=== PATIENT | female | born 1985 | race Asian ===

== ENCOUNTER 2018-12-08 09:53 | Outpatient (CLI) | payer OTHER | END 2018-12-08 12:01 | disposition home or self-care (01) | LOC: OBT 09:53 → L-D 09:56 → OBT 12:01 | DX: O24.419 Gestational diabetes mellitus in pregnancy, unspecified control (principal); Z3A.36 36 weeks gestation of pregnancy | CPT/HCPCS: 76818; 82962 ==

== ENCOUNTER 2018-12-14 09:25 | Outpatient (CLI) | payer OTHER | END 2018-12-14 13:30 | disposition home or self-care (01) | LOC: OBT 09:25 → L-D 09:26 → OBT 13:30 | DX: O24.419 Gestational diabetes mellitus in pregnancy, unspecified control (principal); Z3A.37 37 weeks gestation of pregnancy | CPT/HCPCS: 76816; 76818; 82962 ==

== ENCOUNTER 2018-12-23 00:10 | Inpatient (IN) | payer OTHER ==
[2018-12-23] MEDS ORDERED: METHYLERGONOVINE 0.2 MG INJ IM ×2 (01:30→16:00)
[2018-12-23] MEDS ORDERED: CARBOPROST 250 MCG INJ IM ×2 (01:30→16:00)
[2018-12-23] MEDS ORDERED: MISOPROSTOL 200 MCG TAB PR ×2 (01:30→16:00)
[2018-12-23] MEDS ORDERED: OXYTOCIN 30 UNITS/LR 500 ML IV ×2 (01:30→16:00)
[2018-12-23] MEDS: TERBUTALINE 1 MG/ML INJ SC (01:39)
[2018-12-23] MEDS: LACTATED RINGER'S 1,000 ML IV ×3 (01:39→10:39)
[2018-12-23 02:08] LABS: ADD MAN DIFF? NO
[2018-12-23 02:10] LABS: BASOPHIL # 0.1 10^3/ul (0.0-0.1); BASOPHILS % 0.6 % (0.0-2.0); EOSINOPHILS # 0.1 10^3/ul (0.0-0.5); EOSINOPHILS % 0.6 % (0.0-7.0); HEMATOCRIT 40.2 % (37.0-47.0); HEMOGLOBIN 13.2 g/dl (12.0-16.0); LYMPHOCYTES # 2.4 10^3/ul (0.8-2.9); LYMPHOCYTES % 22.4 % (15.0-51.0); MEAN CORPUSCULAR HEMOGLOBIN 29.2 pg (29.0-33.0); MEAN CORPUSCULAR HGB CONC 32.8 g/dl (32.0-37.0); MEAN CORPUSCULAR VOLUME 88.9 fl (82.0-101.0); MEAN PLATELET VOLUME 11.1 fl (7.4-10.4); MONOCYTE # 0.6 10^3/ul (0.3-0.9); NEUTROPHIL # 7.4 10^3/ul (1.6-7.5); PLATELET COUNT 196 10^3/UL (140-415); RED BLOOD COUNT 4.52 10^6/ul (4.20-5.40); RED CELL DISTRIBUTION WIDTH 13.2 % (11.5-14.5)
[2018-12-23 02:10] LABS: WHITE BLOOD COUNT 10.5 10^3/ul (4.8-10.8)
[2018-12-23 02:26] LABS: GLUCOSE 83 mg/dl (70-220)
[2018-12-23 02:30] LABS: INR 0.86; PARTIAL THROMBOPLASTIN TIME 25.1 Sec (23.0-35.0); PROTIME 11.8 Sec (11.9-14.9); PT RATIO 0.9
[2018-12-23 02:58] LABS: HEPATITIS B SURFACE ANTIGEN NEGATIVE (NEGATIVE)
[2018-12-23] MEDS: CITRIC ACID/NA CITRATE 30 ML CUP PO (07:25)
[2018-12-23] MEDS: ONDANSETRON 4 MG INJ IV (07:25)
[2018-12-23] MEDS ORDERED: PHENYLephrine (100 MCG/ML) 10ML SYG (07:42)
[2018-12-23] MEDS ORDERED: morphine SULFATE/PF (10 MG/10 ML) INJ (07:43)
[2018-12-23] MEDS ORDERED: OXYTOCIN 10 UNIT INJ (07:43)
[2018-12-23] MEDS: AZITHROMYCIN 500MG/NS (PMX) 250 ML IVPB (08:00)
[2018-12-23] MEDS ORDERED: METOCLOPRAMIDE 10 MG INJ (08:09)
[2018-12-23] MEDS ORDERED: DEXAMETHASONE 4 MG/ML 1 ML INJ (08:09)
[2018-12-23] MEDS ORDERED: KETOROLAC 30 MG INJ (08:09)
[2018-12-23] MEDS ORDERED: EPHEDrine 25 MG/5 ML SYG (08:22)
[2018-12-23] MEDS ORDERED: HYDROmorphONE 1 MG/5 ML IV SYRINGE IV ×2 (08:30)
[2018-12-23] MEDS ORDERED: OXYCODONE/ACETAMINOPHEN (5/325) TAB PO (08:30)
[2018-12-23] MEDS ORDERED: ACETAMINOPHEN 500 MG TAB PO (08:30)
[2018-12-23] MEDS ORDERED: MEPERIDINE 25 MG INJ IV (08:30)
[2018-12-23] MEDS ORDERED: FENTAnyl 50 MCG/ML VIAL IV ×2 (08:30)
[2018-12-23] MEDS ORDERED: NALBUPHINE HCL (10 MG/1 ML) INJ IV (08:30)
[2018-12-23] MEDS ORDERED: NALOXONE (0.4 MG/ML) INJ IV (08:30)
[2018-12-23] MEDS ORDERED: EPHEDrine 25 MG/5 ML SYG IV (08:30)
[2018-12-23] MEDS ORDERED: morphine 2 MG INJ IV ×2 (08:30)
[2018-12-23] MEDS ORDERED: ONDANSETRON 4 MG INJ IV ×2 (08:30)
[2018-12-23] MEDS ORDERED: DIPHENHYDRAMINE 50 MG INJ IV ×2 (08:30)
[2018-12-23] MEDS ORDERED: HYDROmorphONE 0.5 MG/0.5 ML SYG IV ×2 (08:30)
[2018-12-23] MEDS ORDERED: HYDROCODONE/APAP (5/325) TAB PO (08:30)
[2018-12-23] MEDS: CEFAZOLIN 2 GM/50 ML (PMX) 50 ML IVPB (09:22)
[2018-12-23] MEDS: OXYTOCIN 30 UNITS/LR 500 ML IV ×2 (09:28→16:42)
[2018-12-23 15:35] LABS: RAPID PLASMA REAGIN NONREACTIVE (NR)
[2018-12-23] MEDS ORDERED: LANOLIN HPA 1 PKT TOP (16:00)
[2018-12-23] MEDS ORDERED: MAGNESIUM HYDROXIDE 30ML CUP PO (16:00)
[2018-12-23] MEDS ORDERED: METHYLERGONOVINE 0.2 MG TAB PO (16:00)
[2018-12-23] MEDS: DEXTROSE 5%-LR 1,000 ML IV ×2 (19:20→23:47)
[2018-12-23] MEDS: SENNA/DOCUSATE NA (8.6MG/50MG) TAB PO (22:36)
[2018-12-24] MEDS: KETOROLAC 30 MG INJ IV (01:02)
[2018-12-24] MEDS: LACTATED RINGER'S 1,000 ML IV (01:12)
[2018-12-24 07:49] LABS: ADD MAN DIFF? NO
[2018-12-24 07:52] LABS: BASOPHIL # 0.1 10^3/ul (0.0-0.1); BASOPHILS % 0.5 % (0.0-2.0); EOSINOPHILS # 0.1 10^3/ul (0.0-0.5); EOSINOPHILS % 0.4 % (0.0-7.0); HEMATOCRIT 34.8 % (37.0-47.0); HEMOGLOBIN 11.5 g/dl (12.0-16.0); LYMPHOCYTES # 2.6 10^3/ul (0.8-2.9); LYMPHOCYTES % 17.3 % (15.0-51.0); MEAN CORPUSCULAR HEMOGLOBIN 29.9 pg (29.0-33.0); MEAN CORPUSCULAR VOLUME 90.4 fl (82.0-101.0); MEAN PLATELET VOLUME 11.1 fl (7.4-10.4); MONOCYTE # 0.6 10^3/ul (0.3-0.9); MONOCYTES % 4.3 % (0.0-11.0); NEUTROPHIL # 11.6 10^3/ul (1.6-7.5); PLATELET COUNT 166 10^3/UL (140-415); RED BLOOD COUNT 3.85 10^6/ul (4.20-5.40); RED CELL DISTRIBUTION WIDTH 13.4 % (11.5-14.5)
[2018-12-24] MEDS: SENNA/DOCUSATE NA (8.6MG/50MG) TAB PO ×2 (09:56→21:48)
[2018-12-24] MEDS ORDERED: HYDROCODONE/APAP (5/325) TAB NGT (11:00)
[2018-12-24] MEDS ORDERED: DIPHTH/TET/ACEL PERTUSS (ADULT) 0.5 ML VIAL IM* (11:00)
[2018-12-24] MEDS: HYDROCODONE/APAP (5/325) TAB PO ×3 (13:15→22:43)
[2018-12-24] MEDS: IBUPROFEN 800 MG TAB PO ×2 (13:16→21:47)
[2018-12-24] MEDS ORDERED: HYDROCODONE/APAP (5/325) TAB GTB (14:00)
[2018-12-24] MEDS: ACCU-CHEK XX ×2 (17:35→23:17)
[2018-12-25] MEDS: HYDROCODONE/APAP (5/325) TAB PO ×5 (03:35→22:00)
[2018-12-25] MEDS: IBUPROFEN 800 MG TAB PO ×3 (05:41→21:59)
[2018-12-25] MEDS: ACCU-CHEK XX (08:30)
[2018-12-25] MEDS: SENNA/DOCUSATE NA (8.6MG/50MG) TAB PO ×2 (09:38→20:53)
[2018-12-26] MEDS: IBUPROFEN 800 MG TAB PO ×2 (05:51→14:06)
[2018-12-26] MEDS: HYDROCODONE/APAP (5/325) TAB PO ×2 (05:51→14:06)
[2018-12-26 09:09] LABS: ADD MAN DIFF? NO
[2018-12-26 09:15] LABS: BASOPHIL # 0.1 10^3/ul (0.0-0.1); BASOPHILS % 0.5 % (0.0-2.0); EOSINOPHILS # 0.1 10^3/ul (0.0-0.5); EOSINOPHILS % 1.5 % (0.0-7.0); HEMATOCRIT 37.4 % (37.0-47.0); HEMOGLOBIN 11.8 g/dl (12.0-16.0); LYMPHOCYTES # 2.4 10^3/ul (0.8-2.9); LYMPHOCYTES % 25.7 % (15.0-51.0); MEAN CORPUSCULAR HEMOGLOBIN 28.6 pg (29.0-33.0); MEAN CORPUSCULAR HGB CONC 31.6 g/dl (32.0-37.0); MEAN CORPUSCULAR VOLUME 90.6 fl (82.0-101.0); MEAN PLATELET VOLUME 10.5 fl (7.4-10.4); MONOCYTE # 0.5 10^3/ul (0.3-0.9); MONOCYTES % 5.2 % (0.0-11.0); NEUTROPHIL # 6.2 10^3/ul (1.6-7.5); NEUTROPHILS % 66.7 % (39.0-77.0); PLATELET COUNT 191 10^3/UL (140-415); RED BLOOD COUNT 4.13 10^6/ul (4.20-5.40); RED CELL DISTRIBUTION WIDTH 13.5 % (11.5-14.5)
[2018-12-26 09:15] LABS: WHITE BLOOD COUNT 9.3 10^3/ul (4.8-10.8)
[2018-12-26] MEDS: SENNA/DOCUSATE NA (8.6MG/50MG) TAB PO (09:23)
[2018-12-26] MEDS: DIPHTH/TET/ACEL PERTUSS (ADULT) 0.5 ML VIAL IM* (09:26)
[2018-12-26] MEDS: MEASLES,MUMPS,RUBELLA VACCINE INJ SC* (11:05)
== END 2018-12-26 17:25 | disposition home or self-care (01) | DRG 788 ==
LOC: OBT 00:10 → L-D 00:10 → OBT 01:20 → L-D 01:20 → PP1 15:34
PROVIDERS: Obstetrics & Gynecology
PROC: 10D00Z1 Extraction of Products of Conception, Low, Open Approach (ICD-10-PCS; principal; 2018-12-23)
DX: O65.5 Obstructed labor due to abnormality of maternal pelvic organs (principal); O34.211 Maternal care for low transverse scar from previous cesarean delivery; O24.429 Gestational diabetes mellitus in childbirth, unspecified control; Z3A.38 38 weeks gestation of pregnancy; Z37.0 Single live birth
CPT/HCPCS: 82947; 82962; 85025; 85610; 85730; 86592; 86850; 86900; 86901; 87340; 99464